=== PATIENT | female | born 1965 | race Caucasian/White ===

== ENCOUNTER 2017-07-17 12:43 | Observation (INO) | payer BC ==
[~2017-07-17] VITALS: Ht 160 cm; Wt 75.9 kg
[2017-07-17] MEDS ORDERED: HYDR25TA6 PO (16:11)
[2017-07-17] MEDS ORDERED: NITROGLYCERIN 2% 1 GM OINT PKT TD STA (16:14)
[2017-07-17] MEDS ORDERED: ASPIRIN 325 MG TAB PO STA (16:14)
[2017-07-17 16:39] LABS: BASOPHILS % 0.6 % (0.0-2.0); EOSINOPHILS # 0.3 10^3/ul (0.0-0.5); EOSINOPHILS % 4.4 % (0.0-7.0); HEMATOCRIT 40.4 % (37.0-47.0); HEMOGLOBIN 13.9 g/dl (12.0-16.0); LYMPHOCYTES # 2.4 10^3/ul (0.8-2.9); LYMPHOCYTES % 36.3 % (15.0-51.0); MEAN CORPUSCULAR HEMOGLOBIN 30.1 pg (29.0-33.0); MEAN CORPUSCULAR HGB CONC 34.4 g/dl (32.0-37.0); MEAN CORPUSCULAR VOLUME 87.4 fl (82.0-101.0); MONOCYTE # 0.5 10^3/ul (0.3-0.9); MONOCYTES % 7.8 % (0.0-11.0); NEUTROPHIL # 3.3 10^3/ul (1.6-7.5); NEUTROPHILS % 50.7 % (39.0-77.0); PLATELET COUNT 308 10^3/UL (140-415); RED BLOOD COUNT 4.62 10^6/ul (4.20-5.40); WHITE BLOOD COUNT 6.6 10^3/ul (4.8-10.8)
--- NOTE | 2017-07-17 16:57 | RADRPT ---
PROCEDURE: XR Chest. CLINICAL INDICATION: Chest pain. TECHNIQUE: Single frontal view. COMPARISON: None. FINDINGS: The lungs are clear. The heart size is normal. There is no pleural effusion. There is no pneumothorax. IMPRESSION: 1. Normal chest radiograph. RPTAT: QQ .Wade Dawson MD, Date Time Electronically viewed and signed by .Wade Dawson MD, on 07/17/2017 16:57 .R/
[2017-07-17 16:59] LABS: ANION GAP 10 (8-16); BLOOD UREA NITROGEN 13 mg/dl (7-20); CALCIUM 9.6 mg/dl (8.4-10.2); CARBON DIOXIDE 30 mmol/L (21-31); CHLORIDE 101 mmol/L (97-110); CREATININE 0.68 mg/dl (0.44-1.00); GLUCOSE 96 mg/dl (70-220); POTASSIUM 3.1 mmol/L (3.5-5.1); SODIUM 138 mmol/L (135-144)
[2017-07-17 17:11] LABS: TROPONIN-I < 0.012 ng/ml (0.00-0.12)
[2017-07-17 17:16] LABS: ADD UMIC NO; UR ASCORBIC ACID 20 mg/dL (NEGATIVE); UR BILIRUBIN (Dip) NEGATIVE (NEGATIVE); UR BLOOD (Dip) NEGATIVE (NEGATIVE); UR CLARITY CLEAR (CLEAR); UR COLOR STRAW (YELLOW); UR GLUCOSE (Dip) NEGATIVE (NEGATIVE); UR KETONES (Dip) NEGATIVE (NEGATIVE); UR LEUKOCYTE ESTERASE (Dip) NEGATIVE Leu/ul (NEGATIVE); UR NITRITE (Dip) NEGATIVE (NEGATIVE); UR SPECIFIC GRAVITY (Dip) 1.008 (1.003-1.030); UR TOTAL PROTEIN (Dip) NEGATIVE (NEGATIVE); UR UROBILINOGEN (Dip) NEGATIVE (NEGATIVE)
--- NOTE | 2017-07-17 17:49 | ERA ---
ER Documentation Chief Complaint Date/Time DATE: 07/17/17 TIME: 17:45 Chief Complaint dysuria x 1 mos, htn, sob, chest pain HPI This is a 52-year-old female with complaints of dysuria for a month. She went to an urgent care to follow-up on these symptoms.. She also complained while she was there that she was having some tightness in her neck with both arms feeling numb shortness of breath. No diaphoresis or palpitations. Blood pressure at the urgent care was 186/127 according to the patient. Patient was sent here from the urgent care for hypertensive crisis/emergency with chest pain. Patient states that she has hypertension and high cholesterol but does not take her hydrochlorothiazide daily. Currently she has no pain ROS All systems reviewed and are negative except as per history of present illness. Medications Home Meds Reported Medications Hydrochlorothiazide* (Hydrochlorothiazide*) 25 Mg Tab, 25 MG PO DAILY, #30 TAB 07/17/17 Allergies Allergies: Coded Allergies: No Known Drug Allergies (Verified Allergy, Unknown, 07/17/17) PMhx/Soc History of Surgery: Yes (FIBROID; hysterrectomy) Anesthesia Reaction: No Hx Neurological Disorder: No Hx Respiratory Disorders: No Hx Cardiac Disorders: No Hx Psychiatric Problems: No Hx Miscellaneous Medical Probl: No Hx Alcohol Use: Yes (OCCASSIONAL) Hx Substance Use: No Hx Tobacco Use: No Smoking Status: Never smoker FmHx Family History: No coronary disease Physical Exam Vitals Vital Signs Date Time Temp Pulse Resp B/P Pulse Ox O2 Delivery O2 Flow Rate FiO2 07/17/17 17:30 72 19 146/106 99 Room Air 07/17/17 16:10 76 18 137/106 98 Room Air 07/17/17 12:54 98.1 78 18 172/95 99 Physical Exam Const: Well-developed, well-nourished Head: Atraumatic, normocephalic Eyes: Normal Conjunctiva, PERRLA, EOMI, normal sclera, no nystagmus ENT: Normal External Ears, Nose and Mouth, moist mucus membranes. Neck: Full range of motion. No meningismus, no lymphadenopathy. Resp: Clear to auscultation bilaterally, no wheezing, rhonchi, rales Cardio: Regular rate and rhythm, no murmurs, S1 S2 present Abd: Soft, non tender x 4, non distended. Normal bowel sounds, no guarding or rebound, no pulsitile abdominal masses or bruits Skin: No petechiae or rashes, no ecchymosis , no maculopapular rash Back: No midline or flank tenderness Ext: No cyanosis, or edema, FROM x 4, normal inspection, neurovascularly intact x 4 Neur: Awake and alert, STR 5/5 x 4, sensation intact x 4, no focal findings, cerebellum intact Psych: Normal Mood and Affect Result Diagram: 07/17/17 1628 07/17/17 1628 Results 24 hrs Laboratory Tests Test 07/17/17 16:28 07/17/17 16:40 White Blood Count 6.610^3/ul Red Blood Count 4.6210^6/ul Hemoglobin 13.9g/dl Hematocrit 40.4% Mean Corpuscular Volume 87.4fl Mean Corpuscular Hemoglobin 30.1pg Mean Corpuscular Hemoglobin Concent 34.4g/dl Red Cell Distribution Width 13.0% Platelet Count 11397^3/UL Mean Platelet Volume 10.0fl Neutrophils % 50.7% Lymphocytes % 36.3% Monocytes % 7.8% Eosinophils % 4.4% Basophils % 0.6% Nucleated Red Blood Cells % 0.0/100WBC Neutrophils # 3.310^3/ul Lymphocytes # 2.410^3/ul Monocytes # 0.510^3/ul Eosinophils # 0.310^3/ul Basophils # 0.010^3/ul Nucleated Red Blood Cells # 0.010^3/ul Sodium Level 138mmol/L Potassium Level 3.1mmol/L Chloride Level 101mmol/L Carbon Dioxide Level 30mmol/L Anion Gap 10 Blood Urea Nitrogen 13mg/dl Creatinine 0.68mg/dl Glucose Level 96mg/dl Calcium Level 9.6mg/dl Troponin I < 0.012ng/ml Urine Color STRAW Urine Clarity CLEAR Urine pH 7.0 Urine Specific [place] 1.008 Urine Ketones NEGATIVEmg/dL Urine Nitrite NEGATIVEmg/dL Urine Bilirubin NEGATIVEmg/dL Urine Urobilinogen NEGATIVEmg/dL Urine Leukocyte Esterase NEGATIVELeu/ul Urine Hemoglobin NEGATIVEmg/dL Urine Glucose NEGATIVEmg/dL Urine Total Protein NEGATIVEmg/dl Current Medications Medications (Trade) Dose Ordered Sig/Debora Route PRN Reason Start Time Stop Time Status Last Admin Dose Admin Aspirin (Aspirin) 325 mg ONCE STAT PO 07/17/17 16:14 07/17/17 16:24 DC 07/17/17 16:38 Nitroglycerin (Nitroglycerin 2% Oint) 1 inch ONCE STAT TD 07/17/17 16:14 07/17/17 16:24 DC 07/17/17 16:39 Procedures/MDM EKG: Rate/Rhythm: Normal Sinus Rhythm,NL intervals QRS, ST, QT: NORMAL MS, QRS, QT] Impression: NORMAL EKG PROCEDURE: XR Chest. CLINICAL INDICATION: Chest pain. TECHNIQUE: Single frontal view. COMPARISON: None. FINDINGS: The lungs are clear. The heart size is normal. There is no pleural effusion. There is no pneumothorax. IMPRESSION: 1. Normal chest radiograph. RPTAT: QQ .Wade Dawson MD, MD Date Time Electronically viewed and signed by .Wade Dawson MD, MD on 07/17/2017 16:57 .R/ CC: CLAUS MAC DO Patient's symptoms are concerning for cardiac cause will require inpatient workup and continuous monitoring. Further w/u for ischemia, arrhythmia, PE or dissection will be deferred to the inpatient team. Accepting Care Team: Current data and ongoing care discussed. Time: Time of admission Primary Provider: XOXOXO Consulting: XOXOXO Outstanding Data: none Departure Diagnosis: Primary Impression: Chest pain Qualified Code: R07.9 - Chest pain, unspecified type Condition: Stable CLAUS MAC DO Jul 17, 2017 17:49
[2017-07-17] MEDS ORDERED: ONDANSETRON 4 MG INJ IV PRN (18:00)
[2017-07-17] MEDS ORDERED: ACETAMINOPHEN 325 MG TAB PO PRN (18:00)
[2017-07-17] MEDS ORDERED: POTASSIUM CHLORIDE (SR) 20 MEQ TAB PO STA (18:03)
[2017-07-17] MEDS ORDERED: NACL 0.9% 3 ML SYG IV SCH (18:30)
[2017-07-17] MEDS ORDERED: morphine 2 MG INJ IV PRN (18:30)
[2017-07-17] MEDS ORDERED: HYDROCODONE/APAP (5/325) TAB PO PRN (18:30)
--- NOTE | 2017-07-17 18:41 | HP ---
Date/Time of Note Date/Time of Note DATE: 07/17/17 TIME: 18:38 Assessment/Plan VTE Prophylaxis VTE Prophylaxis Intervention: SCD's Lines/Catheters IV Catheter Type (from Nrsg): Saline Lock Assessment/Plan Assessment/Plan 52 yo F with pmhx HTN, fibroids sp hyste[place] [facility] [place] resume home BP meds acs r/o TTE given neuro exam currently normal, no compelling indication for stat neuroimaging though if changes will obtain CT #dysuria: UA pristine. will repeat per pt request #?RADHA: continuous pulse ox HPI/ROS Admit Date/Time Admit Date/Time Hx of Present Illness CC: sent from Urgent Care for HTN urgency HPI 52 yo F with pmhx HTN, fibroids sp hysterectomy [place] [facility] [place]. Pt [place] [facility] with c/o dysuria. Was rx'ed 7 days of cipro but SBP noted to be in 170s and pt c/o chest pain, bl UE tingling so she was sent to the ER for further eval. pt given 1 inch of nitro paste here and chest pain and tingling resolved. Re dysuria, pt states it's been present for the 3 mos since her hysterectomy. states shes gotten several courses of abx but the pain persists. Also wonders if she has RADHA. No LE swelling. States she has gained 27# from inactivity following her hysterectomy PMH/Family/Social Social History Smoking Status: Never smoker Exam/Review of Systems Vital Signs Vitals Vital Signs Date Time Temp Pulse Resp B/P Pulse Ox O2 Delivery O2 Flow Rate FiO2 07/17/17 17:30 72 19 146/106 99 Room Air 07/17/17 12:54 98.1 Exam Exam nad EOMI CN2-12 intact sensorium and strength preserved throughout no mrg lungs clear abd soft : no vaginal discharge or lesion no rashes no edema trop negative Labs Result Diagram: 07/17/17 1628 07/17/17 1628 Medications Medications Current Medications Hydrochlorothiazide (Hydrochlorothiazide) 25 mg DAILY PO ; Start 07/18/17 at 09: 00 Acetaminophen/ Hydrocodone Bitart ([place] (5/325)) 1 tab Q6H PRN PO PAIN LEVEL 4 -6; Start 07/17/17 at 18:30 Morphine Sulfate (morphine) 2 mg Q4H PRN IV PAIN LEVEL 7-10; Start 07/17/17 at 18:30 Enoxaparin Sodium (Lovenox) 40 mg DAILY SC ; Start 07/18/17 at 09:00 PURVI REVELES MD Jul 17, 2017 18:41
[2017-07-17 19:25] VITALS: TEMP 98
[2017-07-17] MEDS ORDERED: HYDROCHLOROTHIAZIDE 25 MG TAB PO ONE (19:30)
[2017-07-17 20:00] VITALS: BP 163/95; RESP 20
[2017-07-17 20:05] VITALS: PULSE 66
[2017-07-17 20:30] VITALS: BP 163/94; RESP 20
[2017-07-17 20:52] VITALS: Ht 160 cm; Wt 75.9 kg
[2017-07-18] VITALS (13 sets, daily range): BP systolic 136–218; BP diastolic 72–100; PULSE 58–75; RESP 17–20
[2017-07-18 02:45] LABS: ADD UMIC NO; UR ASCORBIC ACID 20 mg/dL (NEGATIVE); UR BILIRUBIN (Dip) NEGATIVE (NEGATIVE); UR BLOOD (Dip) NEGATIVE (NEGATIVE); UR CLARITY CLEAR (CLEAR); UR COLOR YELLOW (YELLOW); UR GLUCOSE (Dip) NEGATIVE (NEGATIVE); UR KETONES (Dip) NEGATIVE (NEGATIVE); UR LEUKOCYTE ESTERASE (Dip) NEGATIVE Leu/ul (NEGATIVE); UR NITRITE (Dip) NEGATIVE (NEGATIVE); UR SPECIFIC GRAVITY (Dip) 1.014 (1.003-1.030); UR TOTAL PROTEIN (Dip) NEGATIVE (NEGATIVE); UR UROBILINOGEN (Dip) NEGATIVE (NEGATIVE)
[2017-07-18 07:35] LABS: CALCIUM 9.2 mg/dl (8.4-10.2); CREATININE 0.74 mg/dl (0.44-1.00); MAGNESIUM 1.9 mg/dl (1.7-2.5); POTASSIUM 3.5 mmol/L (3.5-5.1)
[2017-07-18] MEDS: ENOXAPARIN 40 MG/0.4 ML SYG SC SCH (08:45)
[2017-07-18] MEDS: HYDROCHLOROTHIAZIDE 25 MG TAB PO SCH (08:50)
[2017-07-18] MEDS ORDERED: DOCUSATE SODIUM 100 MG CAP PO PRN (15:30)
[2017-07-18] MEDS ORDERED: AMLODIPINE 10 MG TAB PO ONE (15:30)
--- NOTE | 2017-07-18 15:30 | PN ---
Date/Time of Note Date/Time of Note DATE: 07/18/17 TIME: 15:28 Assessment/Plan VTE Prophylaxis VTE Prophylaxis Intervention: SCD's Lines/Catheters IV Catheter Type (from Nrs): Saline Lock Urinary Cath still in place: No Assessment/Plan Assessment/Plan 52 yo F with pmhx HTN, fibroids sp [place] [facility] [place] resumed home BP meds-->add norvasc given insufficient control acs ruled out TTE ordered #dysuria: UA pristine x 2. pt advised to f/u with PCP #?RADHA: continuous pulse ox ok. pt advised to f/u with PCP stool O&P ordered per pt request anticipate DC in AM if BP better controlled Subjective 24 Hr Interval Summary Free Text/Dictation lots of questions this AM. Requesting her thyroid be checked and that her stool be checked for O&P. Wonders if she has RADHA Exam/Review of Systems Vital Signs Vitals Vital Signs Date Time Temp Pulse Resp B/P Pulse Ox O2 Delivery O2 Flow Rate FiO2 07/18/17 12:43 98.9 72 17 177/98 99 Room Air 07/17/17 21:39 21 Intake and Output 07/17/17 07/17/17 07/18/17 15:00 23:00 07:00 Intake Total 800 ml Balance 800 ml Exam nad no mrg lungs clear abd soft no rashes repeat UA also pristine TSH nl Results Result Diagram: 07/17/17 1628 07/18/17 0700 Results 24 hrs Laboratory Tests Test 07/17/17 16:28 07/17/17 16:40 07/18/17 01:03 07/18/17 01:30 White Blood Count 6.6 Red Blood Count 4.62 Hemoglobin 13.9 Hematocrit 40.4 Mean Corpuscular Volume 87.4 Mean Corpuscular Hemoglobin 30.1 Mean Corpuscular Hemoglobin Concent 34.4 Red Cell Distribution Width 13.0 Platelet Count 308 Mean Platelet Volume 10.0 Neutrophils % 50.7 Lymphocytes % 36.3 Monocytes % 7.8 Eosinophils % 4.4 Basophils % 0.6 Nucleated Red Blood Cells % 0.0 Neutrophils # 3.3 Lymphocytes # 2.4 Monocytes # 0.5 Eosinophils # 0.3 Basophils # 0.0 Nucleated Red Blood Cells # 0.0 Sodium Level 138 Potassium Level 3.1 L Chloride Level 101 Carbon Dioxide Level 30 Anion Gap 10 Blood Urea Nitrogen 13 Creatinine 0.68 Glucose Level 96 Calcium Level 9.6 Troponin I < 0.012 < 0.012 Urine Color STRAW YELLOW Urine Clarity CLEAR CLEAR Urine pH 7.0 5.0 Urine Specific [place] 1.008 1.014 Urine Ketones NEGATIVE NEGATIVE Urine Nitrite NEGATIVE NEGATIVE Urine Bilirubin NEGATIVE NEGATIVE Urine Urobilinogen NEGATIVE NEGATIVE Urine Leukocyte Esterase NEGATIVE NEGATIVE Urine Hemoglobin NEGATIVE NEGATIVE Urine Glucose NEGATIVE NEGATIVE Urine Total Protein NEGATIVE NEGATIVE Test 07/18/17 07:00 Sodium Level 141 Potassium Level 3.5 Chloride Level 103 Carbon Dioxide Level 29 Anion Gap 13 Blood Urea Nitrogen 14 Creatinine 0.74 Glucose Level 96 Calcium Level 9.2 Magnesium Level 1.9 Troponin I < 0.012 Thyroid Stimulating Hormone (TSH) 1.440 Medications Medications Current Medications Hydrochlorothiazide (Hydrochlorothiazide) 25 mg DAILY PO Last administered on 07/18/17 08:50; Admin Dose 25 MG; Start 07/18/17 at 09:00 Acetaminophen/ Hydrocodone Bitart ([place] (5/325)) 1 tab Q6H PRN PO PAIN LEVEL 4 -6 Last administered on 07/17/17 20:55; Admin Dose 1 TAB; Start 07/17/17 at 18: 30 Morphine Sulfate (morphine) 2 mg Q4H PRN IV PAIN LEVEL 7-10; Start 07/17/17 at 18:30 Enoxaparin Sodium (Lovenox) 40 mg DAILY SC Last administered on 07/18/17 08:45 ; Admin Dose 40 MG; Start 07/18/17 at 09:00 Docusate Sodium (Colace) 100 mg BID PRN PO CONSTIPATION; Start 07/18/17 at 15: 30 PURVI REVELES MD Jul 18, 2017 15:30 PURVI REVELES MD Jul 18, 2017 15:30
[2017-07-19] VITALS (13 sets, daily range): BP systolic 120–161; BP diastolic 63–107; PULSE 58–83; RESP 18
[2017-07-19] MEDS ORDERED: hydrALAzine 20 MG INJ IV PRN (03:00)
[2017-07-19] MEDS ORDERED: AMLODIPINE 10 MG TAB PO SCH (09:00)
[2017-07-19] MEDS: HYDROCHLOROTHIAZIDE 25 MG TAB PO SCH (09:31)
[2017-07-19] MEDS: ENOXAPARIN 40 MG/0.4 ML SYG SC SCH (09:34)
--- NOTE | 2017-07-19 14:13 | PDOCDIS ---
Discharge Instructions CONDITION Patient Condition: Stable HOME CARE INSTRUCTIONS: Diet Instructions: Low Fat /Cholesterol ACTIVITY: Activity Restrictions: Slowly Increase Activity FOLLOW UP/APPOINTMENTS Follow-up Plan Please take your medications as prescribed. Please follow-up with your regular doctor in the clinic in the next 1 week. DENIA FRIAS Jul 19, 2017 14:13
[2017-07-19] MEDS ORDERED: AMLO-147 PO (14:14)
--- NOTE | 2017-07-19 16:11 | DS ---
DATE OF ADMISSION: 07/17/2017 DATE OF DISCHARGE: 07/19/2017 HOSPITAL COURSE: The patient came in with hypertensive urgency. She had some changes made to her blood pressure medications. Her systolic blood pressure on admission was around 218 range over 100 diastolic. Over the course of her hospital stay her blood pressure improved. She also ruled out for acute coronary syndrome as her troponins are negative times 3. Vital signs remained stable. She was able to ambulate and tolerate a by mouth diet. She will be discharged home today in improved condition. DISCHARGE MEDICATIONS: She will be sent with Norvasc 10 mg daily and also she will continue hydrochlorothiazide 25 mg daily. FOLLOWUP: She can followup with her regular doctor in clinic in the next 1 to 2 weeks. FINAL DIAGNOSES: 1. Elevated blood pressure, hypertensive urgency, now improved on blood pressure medicines. 2. Chest pain, ruled out for acute coronary syndrome. 3. History of fibroids status post hysterectomy in the past. 4. History of essential hypertension. Time spent to discharge the patient 40 minutes. Dictated By: Salomón Bermudez MD /isamar/steve /Document#: [id number]
--- NOTE | 2017-07-20 12:53 | RADRPT ---
Echocardiogram Report Patient Name: FLORA MEDEL Gender: Female Date: 1965 Study Date: 19-Jul-2017 [place] Land: [facility] Location: [id number] Ref. Physician: PURVI REVELES Quality: Good Procedures: Transthoracic echocardiogram with complete 2D, M-Mode, and doppler examination. Indications: Chest Pain. 2D/M Mode Doppler Measurement Value Normal Ranges Measurement Value Normal Ranges LVIDd 2D 4.1 3.5 - 5.6 cm AV Mean [place] 1.5 m/sec LVIDs 2D 2.2 2.1 - 4.1 cm AV Mean PG 9.6 mmHg LVPWd 2D 1.3 0.6 - 1.1 cm AV Peak [place] 2.2 m/sec IVSd 2D 1.3 0.6 - 1.1 cm AV Peak PG 19.1 mmHg AoR Diam 2D 3.1 2.0 - 3.7 cm AV VTI 38.9 cm EDV 2D 75.1 cm3 MV E Peak [place] 0.5 m/sec ESV 2D 11.1 cm3 MV A Peak [place] 0.8 m/sec LA Dimen 2D 3.6 2.3 - 4.0 cm MV E/A 0.6 MV Decel Time 446 msec MV Decel Cros[place] 1 MV E/A 0.6 TR Peak [place] 1.7 m/sec TR Peak PG 11.1 mmHg Findings Left Ventricle: Normal left ventricular systolic function. Normal left ventricular cavity size. Mild concentric left ventricular hypertrophy. Ejection fraction is visually estimated at 55 %. Tissue Doppler/Mitral Doppler indices are consistent with impaired relaxation (Stage I diastolic dysfunction). Right Ventricle: Normal right ventricular size. Normal right ventricular systolic function. Left Atrium: The left atrium is normal in size. Right Atrium: The right atrium is normal in size. Mitral Valve: Normal appearance of the mitral valve. Trace mitral regurgitation. Aortic Valve: Aortic sclerosis without stenosis. No aortic regurgitation. Tricuspid Valve: Unable to obtain RVSP due to minimal presence of tricuspid regurgitation. There is trace tricuspid regurgitation. Pulmonic Valve: Normal pulmonic valve appearance. Pericardium: Normal pericardium with no significant pericardial effusion. Aorta: Normal aortic root. IVC: Normal size and normal respiratory collapse consistent with normal right atrial pressure. Conclusions Normal left ventricular systolic function. Normal left ventricular cavity size. Mild concentric left ventricular hypertrophy. Ejection fraction is visually estimated at 55 %. Tissue Doppler/Mitral Doppler indices are consistent with impaired relaxation (Stage I diastolic dysfunction). No significant valvular stenosis or regurgitation seen. Unable to obtain RVSP due to minimal presence of tricuspid regurgitation. Normal size and normal respiratory collapse consistent with normal right atrial pressure. Electronically Signed By: Martin Gamble 20-Jul-2017 12:52:33 -0700 Patient Name: FLORA MEDEL Study Date: 19-Jul-2017 [id number]
== END 2017-07-19 16:49 | disposition home or self-care (01) ==
LOC: E/R 12:43 → INTOOBSV 17:45 → MS4 17:45
PROVIDERS: ADMIT Internal Medicine; ATTEND Internal Medicine
DX: I16.0 Hypertensive urgency (principal); R30.0 Dysuria; I10 Essential (primary) hypertension; Z90.710 Acquired absence of both cervix and uterus
CPT/HCPCS: 36415; 71010; 80048; 81003; 83735; 84443; 84484; 85025; 87045; 87177; 93005; 93306; J0360; J1650; Z7500; Z7502; Z7610; G0378

== ENCOUNTER 2019-02-23 12:07 | Emergency (ER) | payer BC, OTHER ==
[~2019-02-23] VITALS: Ht 160 cm; Wt 69.7 kg
[~2019-02-23 12:07] MED LIST: AMLO-147 PO; HYDR25TA6 PO
[2019-02-23 12:15] VITALS: Ht 160 cm; Wt 69.7 kg
[2019-02-23] MEDS ORDERED: IOHEXOL 300MG/ML 150 ML BTL ONE (14:24)
[2019-02-23] MEDS ORDERED: SOD CHLORIDE 0.9% 100 ML ONE (14:24)
[2019-02-23] MEDS ORDERED: DOCU-144 PO (15:56)
[2019-02-23] MEDS ORDERED: HYDR-3029 PO (15:56)
[2019-02-23] MEDS ORDERED: SIME80TA53 PO (15:56)
--- NOTE | 2019-02-23 16:02 | ERD ---
ER Documentation Chief Complaint Chief Complaint pp x months radiating to back s/p hysterectomy 2yrs ago; vag pain; HPI 54-year-old female presenting with hysterectomy x2 years and abdominal pain. No vomiting. No fevers. She states she feels some right lower pelvic pain that radiates to her back. Patient also has some generalized pain type sensations to her abdomen that come and go spontaneously. No changes in urination or bowel movement. Medical problems denies. NKDA. Surgical history hysterectomy. Social history denies ROS All systems reviewed and are negative except as per history of present illness. Medications Home Meds Active Scripts Docusate Sodium* (Colace*) 100 Mg Capsule, 100 MG PO TID, #30 CAP Prov:SARITA SUNG PA-C 02/23/19 Hydroxyzine Hcl* (Hydroxyzine Hcl*) 10 Mg Tablet, 10 MG PO Q6H PRN for ANXIETY, #30 TAB Prov:SARITA SUNG PA-C 02/23/19 Simethicone (GAS RELIEF) 80 Mg Tab.chew, 80 MG PO DAILY, #30 TAB.CHEW Prov:SARITA SUNG PA-C 02/23/19 Amlodipine Besylate* (Amlodipine Besylate*) 10 Mg Tablet, 10 MG PO DAILY, #30 TAB 3 Refills Prov:DENIA FRIAS 07/19/17 Reported Medications Hydrochlorothiazide* (Hydrochlorothiazide*) 25 Mg Tab, 25 MG PO DAILY, #30 TAB 07/17/17 Allergies Allergies: Coded Allergies: No Known Drug Allergies (Verified Allergy, Unknown, 07/17/17) PMhx/Soc History of Surgery: Yes (Hysterrectomy) Anesthesia Reaction: No Hx Neurological Disorder: No Hx Respiratory Disorders: No Hx Cardiac Disorders: Yes (HTN) Hx Psychiatric Problems: No Hx Miscellaneous Medical Probl: No (fibroids in the uterus) Hx Alcohol Use: Yes (ocassional) Hx Substance Use: No Hx Tobacco Use: No Smoking Status: Never smoker FmHx Family History: No diabetes, No coronary disease, No other Physical Exam Vitals Vital Signs Date Temp Pulse Resp B/P (MAP) Pulse Ox O2 O2 Flow FiO2 Time Delivery Rate 02/23/19 98.6 64 20 172/101 98 12:15 (124) Physical Exam GENERAL: The patient is well-appearing, well-nourished, in no acute distress HEENT: Atraumatic. Conjunctivae are pink. Pupils equal, round, and reactive to light. There is no scleral icterus. Tympanic membranes clear bilaterally. Oropharynx clear. NECK: C-spine is soft and supple. There is no meningismus. There is no cervical lymphadenopathy. CHEST: Clear to auscultation bilaterally. There are no rales, wheezes or rhonchi. HEART: Regular rate and rhythm. No murmurs, clicks, rubs or gallops. No S3 or S4. ABDOMEN:Soft, nontender and nondistended. Good bowel sounds. No rebound or guarding. No gross peritonitis. No gross organomegaly or masses. No Benjamin sign or McBurney point tenderness. SKIN: There is no apparent rash or petechiae. The skin is warm and dry. Result Diagram: 02/23/19 1348 02/23/19 1348 Results 24 hrs Laboratory Tests Test 02/23/19 13:48 White Blood Count 5.8 10^3/ul Red Blood Count 4.61 10^6/ul Hemoglobin 13.9 g/dl Hematocrit 40.3 % Mean Corpuscular Volume 87.4 fl Mean Corpuscular Hemoglobin 30.2 pg Mean Corpuscular Hemoglobin Concent 34.5 g/dl Red Cell Distribution Width 13.2 % Platelet Count 260 10^3/UL Mean Platelet Volume 10.4 fl Immature Granulocytes % 0.200 % Neutrophils % 48.7 % Lymphocytes % 41.0 % Monocytes % 7.7 % Eosinophils % 2.1 % Basophils % 0.3 % Nucleated Red Blood Cells % 0.0 /100WBC Immature Granulocytes # 0.010 10^3/ul Neutrophils # 2.8 10^3/ul Lymphocytes # 2.4 10^3/ul Monocytes # 0.5 10^3/ul Eosinophils # 0.1 10^3/ul Basophils # 0.0 10^3/ul Nucleated Red Blood Cells # 0.0 10^3/ul Urine Color YELLOW Urine Clarity SLIGHTLY CLOUDY Urine pH 6.0 Urine Specific [place] 1.025 Urine Ketones NEGATIVE mg/dL Urine Nitrite NEGATIVE mg/dL Urine Bilirubin NEGATIVE mg/dL Urine Urobilinogen 1+ mg/dL Urine Leukocyte Esterase NEGATIVE Will/ul Urine Microscopic RBC 1 /HPF Urine Microscopic WBC 1 /HPF Urine Squamous Epithelial Cells FEW /HPF Urine Mucus MANY /HPF Urine Hemoglobin NEGATIVE mg/dL Urine Glucose NEGATIVE mg/dL Urine Total Protein NEGATIVE mg/dl Sodium Level 142 mmol/L Potassium Level 3.8 mmol/L Chloride Level 107 mmol/L Carbon Dioxide Level 28 mmol/L Anion Gap 7 Blood Urea Nitrogen 17 mg/dl Creatinine 0.64 mg/dl Est Glomerular Filtrat Rate mL/min > 60 mL/min Glucose Level 99 mg/dl Calcium Level 10.1 mg/dl Total Bilirubin 0.6 mg/dl Direct Bilirubin 0.00 mg/dl Indirect Bilirubin 0.6 mg/dl Aspartate Amino Transf (AST/SGOT) 23 IU/L Alanine Aminotransferase (ALT/SGPT) 21 IU/L Alkaline Phosphatase 57 IU/L Total Protein 7.0 g/dl Albumin 4.3 g/dl Globulin 2.70 g/dl Albumin/Globulin Ratio 1.59 Lipase 75 U/L Current Medications Medications Dose Sig/Debora Start Time Status Last (Trade) Ordered Route PRN Stop Time Admin Dose Reason Admin IV Flush 10 ml STK-MED 02/23/19 DC 02/23/19 (NS 10 ml) ONCE .ROUTE 14:24 14:57 02/23/19 14:25 Sodium 100 ml @ ud STK-MED 02/23/19 DC 02/23/19 Chloride ONCE .ROUTE 14:24 14:59 02/23/19 14:25 Iohexol 150 ml STK-MED 02/23/19 DC 02/23/19 (Omnipaque ONCE .ROUTE 14:24 14:59 300mg/ ml) 02/23/19 14:25 Procedures/MDM DIAGNOSTIC IMAGING REPORT Patient: FLORA MEDEL : 1965 Age: 54 Sex: F MR #: [id number] DOS: 02/23/19 1301 Ordering MD: GARDENIA SUNG PA-C Location: [facility] Room/Bed: PROCEDURE: CT Abdomen and Pelvis With Intravenous Contrast CLINICAL INDICATION: Abdominal Pain TECHNIQUE: Axial computed tomography images of the abdomen and pelvis with intravenous contrast. Sagittal and coronal reformatted images were created and reviewed. CTDIvol (mGy) = 10.3; total DLP (mGy-cm) = 527.9. This CT exam was performed using one or more of the following dose reduction techniques: automated exposure control, adjustment of the mA and/or kV according to patient size, and/or use of iterative reconstruction technique. DICOM images are available. CONTRAST: 90 mL of Omnipaque-300 was administered intravenously. COMPARISON: None FINDINGS: LUNG BASES: Normal. No mass. No consolidation. ABDOMEN: LIVER: Normal. Focal fatty change near the falciform ligament. GALLBLADDER AND BILE DUCTS: Normal. No calcified stones. No ductal dilation. PANCREAS: Normal. No mass. No ductal dilation. SPLEEN: Normal. No splenomegaly. ADRENALS: Normal. No mass. KIDNEYS AND URETERS: Normal. No solid mass. No hydronephrosis. STOMACH AND BOWEL: Mild colonic diverticulosis without evidence of diverticulitis. No obstruction. PELVIS: APPENDIX: No findings to suggest acute appendicitis. BLADDER: Normal. No mass. REPRODUCTIVE: Status post hysterectomy. ABDOMEN and PELVIS: INTRAPERITONEAL SPACE: Normal. No free air. No significant fluid collection. BONES/JOINTS: See above. SOFT TISSUES: Normal. VASCULATURE: Calcific atherosclerosis of the aorta is present. No abdominal aortic aneurysm. LYMPH NODES: Normal. No enlarged lymph nodes. IMPRESSION: 1. Mild colonic diverticulosis without evidence of diverticulitis. 2. Status post hysterectomy. 3. Otherwise unremarkable contrast enhanced CT abdomen and pelvis without acute pathology identified. DIAGNOSTIC IMAGING REPORT Patient: FLORA MEDEL : 1965 Age: 54 Sex: F MR #: [id number] DOS: 02/23/19 1301 Ordering MD: GARDENIA SUNG PA-C Location: [facility] Room/Bed: PROCEDURE: US Pelvis. CLINICAL INDICATION: pelvic pain TECHNIQUE: Multiple sonographic images of the pelvis were obtained utilizing t ransabdominal and endovaginal technique. The images were reviewed on a PACS workstation. COMPARISON: None. FINDINGS: The patient is status post hysterectomy. There are scattered echogenic foci in the ovaries. The right ovary measures 2.0 x 1.4 x 1.0 cm. There is normal Doppler flow. The left ovary measures 2.8 x 1.7 x 1.1 cm. No Doppler flow could be identified in the left ovary. There is no evidence for free fluid. RPTAT: AA IMPRESSION: Ovaries are normal in size with scattered tiny calcifications. No flow is identified in the left ovary, however the left ovary is normal in s ize. Ovarian torsion cannot be excluded. Clinical correlation is needed. Status post hysterectomy. No free fluid. MDM: 54-year-old female presenting with abdominal pelvic pain. Patient had a finding of possible ovarian torsion on ultrasound however on reevaluation patient has 0 abdominal pain to left lower quadrant and I do not feel that this is a concern at this time. Patient continues to tell me that she has inflammation in the stomach after eating and I believe that her pain today is associated with gas pain. I have low suspicion for infectious process. I have low suspicion for ovarian torsion. I low suspicion for small bowel obstruction. Patient is discharged with supportive medications. All questions answered at discharge. Patient is recommended follow-up with [facility]. Departure Diagnosis: Primary Impression: Abdominal pain Condition: Stable Patient Instructions: Abdominal Pain Referrals: [facility] YOU HAVE RECEIVED A MEDICAL SCREENING EXAM AND THE RESULTS INDICATE THAT YOU DO NOT HAVE A CONDITION THAT REQUIRES URGENT TREATMENT IN THE EMERGENCY DEPARTMENT. FURTHER EVALUATION AND TREATMENT OF YOUR CONDITION CAN WAIT UNTIL YOU ARE SEEN IN YOUR DOCTORS OFFICE WITHIN THE NEXT 1-2 DAYS. IT IS YOUR RESPONSIBILITY TO MAKE AN APPOINTMENT FOR FOLOW-UP CARE. IF YOU HAVE A PRIMARY DOCTOR --you should call your primary doctor and schedule an appointment IF YOU DO NOT HAVE A PRIMARY DOCTOR YOU CAN CALL OUR PHYSICIAN REFERRAL HOTLINE AT IF YOU CAN NOT AFFORD TO SEE A PHYSICIAN YOU CAN CHOSE FROM THE FOLLOWING [facility] [address] [facility] [address] [facility] [address] [facility] [address] [facility] [address] [facility] [facility]. [address] Additional Instructions: FOLLOW UP WITH YOUR PRIMARY CARE PHYSICIAN TOMORROW.Return to this facility if you are not improving as expected. SARITA SUNG PA-C February 23, 2019 16:02
[2019-02-23 16:22] VITALS: BP 164/90; PULSE 78; RESP 18
== END 2019-02-23 16:24 | disposition home or self-care (01) ==
LOC: FTE 12:07
DX: R10.9 Unspecified abdominal pain (principal)
CPT/HCPCS: 36415; 74177; 76830; 76856; 80053; 81001; 83690; 85025; Q9967; Z7502; Z7610; 81003